=== PATIENT | female | born 1950 | race Caucasian/White ===

== ENCOUNTER 2017-12-31 01:01 | Observation (INO) | payer MEDICARE, OTHER ==
[2017-12-31] VITALS (8 sets, daily range): BP systolic 91–122; BP diastolic 54–66
[~2017-12-31] VITALS: Ht 177.8 cm; Wt 96.2 kg
[~2017-12-31 01:01] MED LIST: ASPI-1264 PO; ATEN-169 PO; ATOR20TA PO; DOCU240C26 PO; LORA0.5T PO; TOF25T PO
[2017-12-31] MEDS ORDERED: aspirin 81mg tab.chew PO ONE (01:40)
[2017-12-31 01:48] LABS: INR 0.9 INR; PARTIAL THROMBOPLASTIN TIME 27 SECONDS (22-32); PROTHROMBIN TIME 9.4 SECONDS (9.0-12.0)
[2017-12-31] MEDS: nitroGLYCERIN 0.4mg SUBLingual tab SL PRN ×2 (01:48→01:53)
[2017-12-31 02:02] LABS: ALANINE AMINOTRANSFERASE 59 U/L (12-78); ALBUMIN 3.8 G/DL (3.4-5.0); ALBUMIN/GLOBULIN RATIO 0.9 (1.1-1.5); ALKALINE PHOSPHATASE 320 IU/L (46-116); ANION GAP 10 (8-16); ASPARTATE AMINO TRANSFERASE 60 U/L (10-37); BILIRUBIN,TOTAL 0.4 MG/DL (0.1-1.0); BLOOD UREA NITROGEN 16 MG/DL (7-18); BUN/CREATININE RATIO 14.4 (6.6-38.0); CALCIUM 9.2 MG/DL (8.5-10.1); CHLORIDE 104 MMOL/L (99-107); CREATININE 1.11 MG/DL (0.40-0.90); GLUCOSE 110 MG/DL (70-104); SODIUM 141 MMOL/L (135-145); TOTAL CARBON DIOXIDE 27.2 MMOL/L (24-32); TOTAL PROTEIN 7.9 G/DL (6.4-8.2); eGFR 49 ML/MIN
[2017-12-31 02:04] LABS: POTASSIUM 4.2 MMOL/L (3.5-5.1)
[2017-12-31 02:09] LABS: BASOPHILS % (AUTO) 0.4 % (0-1); EOSINOPHILS # (AUTO) 0.3 X10'3 (0-0.9); EOSINOPHILS % (AUTO) 3.3 % (0-6); HEMATOCRIT 39.4 % (35.0-45.0); HEMOGLOBIN 13.3 g/dl (12.0-16.0); LYMPHOCYTES # (AUTO) 1.7 X10'3 (1.1-4.8); LYMPHOCYTES % (AUTO) 16.9 % (21-51); MEAN CORPUSCULAR HEMOGLOBIN 30.2 PG (27.0-31.0); MEAN CORPUSCULAR HGB CONC 33.9 % (33.0-36.5); MEAN CORPUSCULAR VOLUME 88.9 FL (78-98); MEAN PLATELET VOLUME 8.3 FL (7.4-10.4); MONOCYTES # (AUTO) 0.8 X10'3 (0-0.9); MONOCYTES % (AUTO) 7.7 % (2-12); NEUTROPHILS # (AUTO) 7.2 X10'3 (1.8-7.7); NEUTROPHILS % (AUTO) 71.7 % (42-75); PLATELET COUNT 323 X10'3 (140-440); RED BLOOD COUNT 4.43 X10'6 (4.20-5.60); RED CELL DISTRIBUTION WIDTH 15.1 % (11.5-14.5); WHITE BLOOD COUNT 10.1 X10'3 (4.5-11.0)
[2017-12-31] MEDS ORDERED: ondansetron/PF 4mg/2ml inj IV ONE (02:40)
[2017-12-31] MEDS ORDERED: LORazepam 0.5 MG tablet PO PRN (02:40)
[2017-12-31] MEDS ORDERED: morphine 4 MG/ML inj SYRINge IV ONE (02:40)
[2017-12-31] MEDS ORDERED: bisacodyl 10mg suppository rectal RC PRN (04:45)
[2017-12-31] MEDS ORDERED: mag hydrox/Alum hydrox/simeth 30ml oral suspension PO PRN (04:45)
[2017-12-31] MEDS ORDERED: acetaminophen 325mg tablet PO PRN ×3 (04:45→04:50)
[2017-12-31] MEDS ORDERED: ondansetron/PF 4mg/2ml inj IV PRN (04:45)
[2017-12-31] MEDS ORDERED: magnesium hydroxide 30ml (MOM) UD suspension PO PRN (04:45)
[2017-12-31] MEDS ORDERED: metoprolol tartrate 1mg/ml inj IV PRN (04:50)
[2017-12-31] MEDS ORDERED: CAFFEINE CITRATE 60 MG/3 ML injection vial IV PRN (04:50)
[2017-12-31] MEDS ORDERED: morphine 4 MG/ML inj SYRINge IV PRN ×2 (04:50)
[2017-12-31] MEDS ORDERED: regadenoson 0.4mg/5ml syringe IV ONE ×4 (04:50→09:35)
[2017-12-31] MEDS ORDERED: nitroGLYCERIN 0.4mg SUBLingual tab SL PRN ×2 (04:50)
[2017-12-31] MEDS ORDERED: aspirin 325mg tablet PO ONE (04:50)
[2017-12-31 05:26] LABS: CHOL/HDL RATIO 2.6 (0.00-4.99); CHOLESTEROL 159 MG/DL (0-200); HDL CHOLESTEROL 61 MG/DL (35-60); LDL CHOLESTEROL 85 MG/DL (50-100); TRIGLYCERIDES 78 MG/DL (20-135)
[2017-12-31] MEDS ORDERED: atenolol 50mg tablet PO SCH (08:00)
[2017-12-31] MEDS ORDERED: heparin, porcine 5000 units/ml vial SQ SCH (08:00)
[2017-12-31] MEDS ORDERED: CAFFEINE CITRATE 60 MG/3 ML injection vial IV ONE (09:09)
[2017-12-31 09:51] LABS: LIPASE 189 U/L (73-393)
[2017-12-31] MEDS ORDERED: ESOM20CA PO (14:49)
[2017-12-31] MEDS ORDERED: atorvastatin 20mg tablet PO SCH (21:00)
[2017-12-31] MEDS ORDERED: imipramine 25mg tablet PO SCH (21:00)
== END 2017-12-31 15:38 | disposition home or self-care (01) ==
LOC: ER 01:02 → ED HOLD 04:44
PROVIDERS: ADMIT Emergency Medicine; ATTEND Emergency Medicine
DX: R07.89 Other chest pain (principal); E78.5 Hyperlipidemia, unspecified; I10 Essential (primary) hypertension; I05.0 Rheumatic mitral stenosis; I49.9 Cardiac arrhythmia, unspecified; I44.7 Left bundle-branch block, unspecified; Z87.891 Personal history of nicotine dependence; Z90.710 Acquired absence of both cervix and uterus
CPT/HCPCS: 36415; 71045; 76700; 78452; 80053; 80061; 83690; 84484; 85025; 85610; 85730; 93005; 93306; 96372; 96374; 96375; 96376; 99285; A9500; G0378; J1644; J2270; J2405; 93017

== ENCOUNTER 2018-01-18 07:03 | Day surgery (SDC) | payer MEDICARE, OTHER ==
[2018-01-18] VITALS (17 sets, daily range): BP systolic 66–143; BP diastolic 33–88
[~2018-01-18] VITALS: Ht 177.8 cm; Wt 95.5 kg
[~2018-01-18 07:03] MED LIST changes: -ASPI-1264 PO; -DOCU240C26 PO; +ESOM20CA PO
[2018-01-18] MEDS ORDERED: PSYL0.5210 PO (07:18)
[2018-01-18] MEDS ORDERED: diphenhydrAMINE 50 mg/ml inj ONE (07:23)
[2018-01-18] MEDS ORDERED: fentaNYL/PF 50MCG/1 ML 2ML syringe ONE (07:23)
[2018-01-18] MEDS ORDERED: LIDOcaine Viscous 15ml cup ONE (07:23)
[2018-01-18] MEDS ORDERED: MIDAZolam 5mg/5ml vial ONE (07:23)
[2018-01-18] MEDS ORDERED: glucagon, human recombinant 1mg kit ONE (07:24)
[2018-01-18] MEDS ORDERED: iohexol 300 MG/1 ML 50ml polymer ONE (07:24)
[2018-01-18] MEDS ORDERED: levoFLOXACIN-Levaquin 500mg/D5 100 ML IV ONE (08:41)
[2018-01-18] MEDS ORDERED: ondansetron/PF 4mg/2ml inj ONE (10:54)
[2018-01-18] MEDS ORDERED: ondansetron/PF 4mg/2ml inj IV ONE (10:55)
== END 2018-01-18 12:35 | disposition home or self-care (01) ==
LOC: GI LAB 07:03
PROVIDERS: ATTEND Internal Medicine Gastroenterology
DX: K80.50 Calculus of bile duct without cholangitis or cholecystitis without obstruction (principal); D13.5 Benign neoplasm of extrahepatic bile ducts; N28.1 Cyst of kidney, acquired; I70.0 Atherosclerosis of aorta; M16.11 Unilateral primary osteoarthritis, right hip; M47.816 Spondylosis without myelopathy or radiculopathy, lumbar region; J98.4 Other disorders of lung; I10 Essential (primary) hypertension; I44.7 Left bundle-branch block, unspecified; I05.0 Rheumatic mitral stenosis; Z90.710 Acquired absence of both cervix and uterus; Z87.891 Personal history of nicotine dependence; Z90.89 Acquired absence of other organs; Z98.890 Other specified postprocedural states; Z79.899 Other long term (current) drug therapy
CPT/HCPCS: 43262; 43264; 74176; 99153; G0500; J1200; J1610; J1956; J2250; J2405; J3010; J7030; Q9967; 88108; 88305; A4620

== ENCOUNTER 2018-07-26 07:36 | Day surgery (SDC) | payer MEDICARE, OTHER ==
[2018-07-26] VITALS (7 sets, daily range): BP systolic 101–121; BP diastolic 54–76
[~2018-07-26] VITALS: Ht 177.8 cm; Wt 94.8 kg
[~2018-07-26 07:36] MED LIST changes: -ESOM20CA PO; +PSYL0.5210 PO
[2018-07-26] MEDS ORDERED: normal saline 1000ml 1,000 ML IV PRN (08:15)
[2018-07-26] MEDS ORDERED: NAPR220T67 PO (08:44)
[2018-07-26 09:06] LABS: BASOPHILS % (AUTO) 0.7 % (0-1); EOSINOPHILS # (AUTO) 0.4 X10'3 (0-0.9); EOSINOPHILS % (AUTO) 6.3 % (0-6); HEMATOCRIT 40.3 % (35.0-45.0); HEMOGLOBIN 13.5 g/dl (12.0-16.0); LYMPHOCYTES % (AUTO) 16.8 % (21-51); MEAN CORPUSCULAR HEMOGLOBIN 29.7 PG (27.0-31.0); MEAN CORPUSCULAR HGB CONC 33.5 % (33.0-36.5); MEAN CORPUSCULAR VOLUME 88.7 FL (78-98); MEAN PLATELET VOLUME 8.5 FL (7.4-10.4); MONOCYTES # (AUTO) 0.5 X10'3 (0-0.9); MONOCYTES % (AUTO) 8.2 % (2-12); NEUTROPHILS # (AUTO) 4.1 X10'3 (1.8-7.7); PLATELET COUNT 281 X10'3 (140-440); RED BLOOD COUNT 4.54 X10'6 (4.20-5.60); RED CELL DISTRIBUTION WIDTH 14.5 % (11.5-14.5)
[2018-07-26 09:08] LABS: INR 0.9 INR; PROTHROMBIN TIME 9.4 SECONDS (9.0-12.0)
[2018-07-26 09:13] LABS: ALBUMIN 3.5 G/DL (3.4-5.0); ANION GAP 11 (8-16); BLOOD UREA NITROGEN 11 MG/DL (7-18); BUN/CREATININE RATIO 9.5 (6.6-38.0); CALCIUM 9.7 MG/DL (8.5-10.1); CHLORIDE 104 MMOL/L (99-107); CREATININE 1.16 MG/DL (0.40-0.90); GLUCOSE 104 MG/DL (70-104); SODIUM 141 MMOL/L (135-145); TOTAL CARBON DIOXIDE 26.3 MMOL/L (24-32); eGFR 47 ML/MIN
[2018-07-26] MEDS ORDERED: HYDROcodone/acetaminophen 5mg/325mg tablet PO PRN (10:25)
== END 2018-07-26 11:50 | disposition home or self-care (01) ==
LOC: SSTAY O 07:36
PROVIDERS: ATTEND Radiology Diagnostic Radiology
DX: R74.8 Abnormal levels of other serum enzymes (principal); Z79.899 Other long term (current) drug therapy; Z90.710 Acquired absence of both cervix and uterus; Z96.642 Presence of left artificial hip joint; Z98.890 Other specified postprocedural states
CPT/HCPCS: 36415; 47000; 76942; 80048; 85025; 85610; J7030

== ENCOUNTER 2018-11-06 05:27 | Inpatient (IN) | payer MEDICARE, OTHER ==
[2018-10-29 11:03] LABS: BASOPHILS % (AUTO) 0.5 % (0-1); EOSINOPHILS # (AUTO) 0.1 X10'3 (0-0.9); LYMPHOCYTES # (AUTO) 1.5 X10'3 (1.1-4.8); LYMPHOCYTES % (AUTO) 25.3 % (21-51); MEAN CORPUSCULAR HEMOGLOBIN 29.4 PG (27.0-31.0); MEAN CORPUSCULAR HGB CONC 33.3 g/dL (33.0-36.5); MEAN CORPUSCULAR VOLUME 88.4 FL (78-98); MEAN PLATELET VOLUME 8.4 FL (7.4-10.4); MONOCYTES # (AUTO) 0.6 X10'3 (0-0.9); MONOCYTES % (AUTO) 10.2 % (2-12); NEUTROPHILS # (AUTO) 3.6 X10'3 (1.8-7.7); PRE OP HEMATOCRIT 40.7 % (35.0-45.0); PRE OP HEMOGLOBIN 13.5 g/dL (12.0-16.0); PRE OP PLATELET COUNT 261 X10'3 (140-440)
[2018-10-29 11:05] LABS: CLARITY,URINE CLEAR (Clear); COLOR,URINE YELLOW (Yellow); GLUCOSE, URINE NEGATIVE (Neg); KETONES,URINE NEGATIVE (Neg); LEUKOCYTE ESTERASE ,URINE NEGATIVE (Neg); NITRITES, URINE NEGATIVE (Neg); OCCULT BLOOD,URINE NEGATIVE (Neg); PROTEIN,URINE NEGATIVE (Neg); UROBILINOGEN,URINE 0.2 E.U/dL (0.2-1.0)
[2018-10-29 11:13] LABS: UA COLLECTION TYPE CLN CATCH MIDSTREAM
[2018-10-29 11:16] LABS: PRE OP INR 0.9 INR; PRE OP PROTIME 9.6 SECONDS (9.0-12.0)
[2018-10-29 11:26] LABS: ALBUMIN 3.6 G/DL (3.4-5.0); ALBUMIN/GLOBULIN RATIO 1.1 (1.1-1.5); ALKALINE PHOSPHATASE 99 IU/L (46-116); BLOOD UREA NITROGEN 10 MG/DL (7-18); BUN/CREATININE RATIO 11.6 (6.6-38.0); CALCIUM 9.6 MG/DL (8.5-10.1); CHLORIDE 105 MMOL/L (99-107); CREATININE 0.86 MG/DL (0.40-0.90); PRE OP ALT 29 U/L (30-65); PRE OP ANION GAP 6 (8-16); PRE OP AST 34 U/L (10-37); PRE OP BILIRUB, TOTAL 0.5 MG/DL (0.0-1.0); PRE OP GLUCOSE 93 MG/DL (70-104); PRE OP POTASSIUM 4.3 MMOL/L (3.4-5.1); PRE OP SODIUM 141 MMOL/L (135-145); TOTAL CARBON DIOXIDE 30.4 MMOL/L (24-32); TOTAL PROTEIN 6.9 G/DL (6.4-8.2); eGFR 66 ML/MIN
[2018-11-06] VITALS (19 sets, daily range): BP systolic 88–127; BP diastolic 42–73
[~2018-11-06] VITALS: Ht 177.8 cm; Wt 86.2 kg
[~2018-11-06 05:27] MED LIST changes: -ATOR20TA PO; +BISM262T15; +CHOL500050 PO; +LACT1CAP65 PO; +LEVO25TA7 PO; +NAPR220T67 PO; -PSYL0.5210 PO; -TOF25T PO; +URSO500T9 PO; +ringers solution, lacted 1,000 ML IV SCH
[2018-11-06] MEDS ORDERED: famotidine 20mg tablet PO ONE (05:30)
[2018-11-06] MEDS ORDERED: acetaminophen 325mg tablet PO ONE (05:30)
[2018-11-06] MEDS ORDERED: metoclopramide 5 mg/ml inj IV ONE (05:30)
[2018-11-06] MEDS ORDERED: vancomycin inj 1,500 MG in normal saline 300ml IV soln IV ONE (05:30)
[2018-11-06] MEDS ORDERED: DOCUMENT DATE & TIME OF BETA-BLOCKER PO ONE (05:30)
[2018-11-06] MEDS ORDERED: cefazolin/dext.iso 2gm/100 ML IV ONE (05:30)
[2018-11-06] MEDS ORDERED: tranexamic acid inj. 1,000 MG in normal saline 100 ML IV ONE (05:30)
[2018-11-06] MEDS ORDERED: gabapentin 300mg capsule PO ONE (05:30)
[2018-11-06] MEDS ORDERED: celeCOXIB 100mg capsule PO ONE (05:30)
[2018-11-06] MEDS ORDERED: oxyCODONE SR 10mg (sust. release) tab -2 tabs (20mg) PO ONE (05:30)
[2018-11-06] MEDS ORDERED: LIDOcaine 1% (10mg/ml) 2ml vial ONE (05:45)
[2018-11-06] MEDS ORDERED: vancomycin 1,000mg inj ONE (06:36)
[2018-11-06] MEDS ORDERED: ROPIVAcaine inj 250 MG, ketorolac tromethamine inj. 30 MG, CloNIDine/PF inj 80 MCG, epi... IU ONE ×5 (06:50)
[2018-11-06] MEDS ORDERED: HYDROmorphone 1 mg/ml syringe IV PRN (06:55)
[2018-11-06] MEDS ORDERED: bisacodyl 10mg suppository rectal RC PRN (06:55)
[2018-11-06] MEDS ORDERED: diphenhydrAMINE 25mg capsule PO PRN ×2 (06:55)
[2018-11-06] MEDS ORDERED: ondansetron/PF 4mg/2ml inj IV PRN ×2 (06:55→08:10)
[2018-11-06] MEDS ORDERED: acetaminophen 325mg tablet PO PRN (06:55)
[2018-11-06] MEDS ORDERED: magnesium hydroxide 30ml (MOM) UD suspension PO PRN (06:55)
[2018-11-06] MEDS ORDERED: HYDROmorphone inj. 0.5 MG/0.5 ML DISP.SYRIN IV PRN (06:55)
[2018-11-06] MEDS ORDERED: tetracaine 1% (10mg/ml) pres. free inj. ONE (07:06)
[2018-11-06] MEDS ORDERED: MIDAZolam 1mg/ml 10ml vial ONE (07:09)
[2018-11-06] MEDS ORDERED: fentaNYL/PF 50MCG/1 ML 2ML syringe ONE (07:10)
[2018-11-06] MEDS ORDERED: ROPIVAcaine inj 250 MG, ketorolac tromethamine inj. 30 MG, epiNEPHrine inj 0.5 MG in no... IU ONE (07:29)
[2018-11-06] MEDS ORDERED: propofol inj 20 ML IV ONE (07:31)
[2018-11-06] MEDS ORDERED: ePHEDrine 50MG/ML INJ. ONE (07:55)
[2018-11-06] MEDS ORDERED: URSODIOL PO SCH (08:00)
[2018-11-06] MEDS ORDERED: non-formulary drug (Lactobacillus Acidophilus (Probiotic) 1 CAP) PO SCH (08:00)
[2018-11-06] MEDS ORDERED: non-formulary drug (Cholecalciferol (Vitamin D3) (Vitamin D) 1 CAP) PO SCH (08:00)
[2018-11-06] MEDS ORDERED: ringers solution, lacted 1,000 ML IV SCH (08:08)
[2018-11-06] MEDS ORDERED: morphine 4 MG/ML inj SYRINge IV PRN ×2 (08:10)
[2018-11-06] MEDS ORDERED: proCHLORperazine 10 MG/2 ml inj IV PRN (08:10)
[2018-11-06] MEDS ORDERED: meperidine/PF 25mg/ml syringe IV PRN ×3 (08:10)
--- NOTE | 2018-11-06 08:45 | NUR ---
UReceived from OR via , accompanied by Anesthesiologist DR WARD and report given by Anesthesiolgist. PATIENT A&OX4, DENIES PAIN, V/S WNL, NEUROVASCULAR CHECKS INTACT, 18G PIV RUE , DRESSING TO RIGHT HIP CDI W/ COLD POWDER PACK ON AND IMMOBILIZER BRACE TO RLE, SCD ON.
[2018-11-06] MEDS ORDERED: diphenhydrAMINE 50 mg/ml inj ONE (09:05)
--- NOTE | 2018-11-06 09:07 | NUR ---
PATIENT VERY ITCHY BENYDRYL GIVEN
--- NOTE | 2018-11-06 09:45 | NUR ---
PATIENT A&OX4, DENIES PAIN, V/S WNL, NEUROVASCULAR CHECKS INTACT, 18G PIV RUE , DRESSING TO RIGHT HIP CDI W/ COLD POWDER PACK ON AND IMMOBILIZER BRACE TO RLE, SCD ON. SENSATIONS AT T11. . PATIENT TAKEN TO 4015B WITH ALL BELONGINGS AND HOOKED UP TO MONITORS IN ROOM AND REPORT GIVEN TO HOME HEALTH CAREGIVER WHO HAS TAKEN OVER PATIENT CARE.
[2018-11-06] MEDS ORDERED: naproxen sodium 220mg tablet PO PRN (10:00)
[2018-11-06] MEDS: gabapentin 300mg capsule PO SCH ×3 (10:20→20:34)
[2018-11-06] MEDS: levoTHYROXINE 25mcg tablet PO SCH (10:20)
[2018-11-06] MEDS: LORazepam 0.5 MG tablet PO SCH ×2 (10:20→20:34)
[2018-11-06] MEDS: atenolol 50mg tablet PO SCH ×3 (10:21→20:34)
[2018-11-06] MEDS: multivitamins, therapeutics tablet PO SCH (10:21)
[2018-11-06] MEDS: ascorbic acid 500mg tablet PO SCH ×2 (10:21→20:33)
[2018-11-06] MEDS: aspirin 325mg tablet PO SCH (10:22)
[2018-11-06] MEDS: potassium cl 20mEq in 1/2 NS 1,000 ML IV SCH ×3 (12:35→20:34)
[2018-11-06] MEDS: HYDROcodone/acetaminophen 10/325mg tab PO PRN ×3 (12:36→23:04)
[2018-11-06] MEDS ORDERED: tranexamic acid inj. 1,000 MG in normal saline 100ml IV soln 100 ML IV ONE (13:16)
[2018-11-06] MEDS: cefazolin/dext.iso 2gm/100ml 100 ML IV SCH ×2 (16:59→23:04)
--- NOTE | 2018-11-06 18:15 | NUR ---
RECEIVED REPORT FROM JAYSON BAILEY AND ASSUMED PATIENT CARE
[2018-11-06] MEDS: lactobacillus rhamnosus 10,000 MMU CELLS/CAPSULE PO SCH (20:33)
[2018-11-06] MEDS: sennosides 8.6mg tablet PO SCH ×2 (20:33→21:00)
[2018-11-07 02:00] VITALS: BP 96/48
[2018-11-07] MEDS: HYDROcodone/acetaminophen 10/325mg tab PO PRN ×2 (05:20→10:11)
[2018-11-07 06:00] VITALS: BP 94/54
--- NOTE | 2018-11-07 06:01 | NUR ---
REPORT GIVEN TO ROGER BAILEY
--- NOTE | 2018-11-07 06:43 | NUR ---
Patient in room ORTHO 4015. I have received report from Itzel BAILEY and had the opportunity to ask questions and assume patient care.
[2018-11-07] MEDS: potassium cl 20mEq in 1/2 NS 1,000 ML IV SCH ×3 (06:55→22:55)
[2018-11-07] MEDS: cefazolin/dext.iso 2gm/100ml 100 ML IV SCH ×2 (07:31→16:09)
[2018-11-07 07:32] LABS: BASOPHILS % (AUTO) 0.3 % (0-1); EOSINOPHILS # (AUTO) 0.1 X10'3 (0-0.9); EOSINOPHILS % (AUTO) 1.2 % (0-6); HEMATOCRIT 34.4 % (35.0-45.0); HEMOGLOBIN 11.4 g/dl (12.0-16.0); LYMPHOCYTES # (AUTO) 1.7 X10'3 (1.1-4.8); LYMPHOCYTES % (AUTO) 23.5 % (21-51); MEAN CORPUSCULAR HEMOGLOBIN 29.4 PG (27.0-31.0); MEAN CORPUSCULAR VOLUME 89.1 FL (78-98); MEAN PLATELET VOLUME 8.6 FL (7.4-10.4); MONOCYTES # (AUTO) 0.8 X10'3 (0-0.9); MONOCYTES % (AUTO) 10.7 % (2-12); NEUTROPHILS # (AUTO) 4.6 X10'3 (1.8-7.7); NEUTROPHILS % (AUTO) 64.3 % (42-75); PLATELET COUNT 225 X10'3 (140-440); RED BLOOD COUNT 3.86 X10'6 (4.20-5.60); WHITE BLOOD COUNT 7.2 X10'3 (4.5-11.0)
[2018-11-07] MEDS: gabapentin 300mg capsule PO SCH ×3 (07:32→19:56)
[2018-11-07] MEDS: aspirin 325mg tablet PO SCH (07:32)
[2018-11-07] MEDS: lactobacillus rhamnosus 10,000 MMU CELLS/CAPSULE PO SCH ×2 (07:32→19:56)
[2018-11-07] MEDS: multivitamins, therapeutics tablet PO SCH (07:33)
[2018-11-07] MEDS: LORazepam 0.5 MG tablet PO SCH ×2 (07:33→19:56)
[2018-11-07] MEDS: levoTHYROXINE 25mcg tablet PO SCH (07:33)
[2018-11-07] MEDS: ascorbic acid 500mg tablet PO SCH ×2 (07:34→19:55)
[2018-11-07] MEDS: vitamin D (cholecalciferol) 1,000 unit tablet PO SCH (07:34)
[2018-11-07] MEDS: atenolol 50mg tablet PO SCH ×2 (07:39→20:00)
[2018-11-07 07:47] LABS: ANION GAP 9 (8-16); CHLORIDE 100 MMOL/L (99-107); POTASSIUM 3.8 MMOL/L (3.5-5.1); SODIUM 134 MMOL/L (135-145); TOTAL CARBON DIOXIDE 25.4 MMOL/L (24-32)
[2018-11-07 10:05] VITALS: BP 112/52
--- NOTE | 2018-11-07 11:23 | NUR ---
Student documentation: I have reviewed all interventions, assessments performed and documented by Itzel Barry. Student Medication Administration: For this medication-pass time frame, all medication were reviewed, dispensed, administered and documented per hospital policy [facility]
[2018-11-07 14:00] VITALS: BP 109/53
--- NOTE | 2018-11-07 15:08 | NUR ---
Joint replacement consult: Pt seen by RD for written/verbal high protein ed. RD reviewed high protein needs for wound healing, immune strength, high protein foods, and protein supplementation options. RD contact information provided in case of further questions. Pt declines additional proteins. Pt has new DX PBC autoimmune disease and had questions regarding diet guidelines. YING provided guidelines from [email or web address] for pt. Addendum: 11/07/18 at [address] Amended: Links added.
[2018-11-07 18:00] VITALS: BP 93/63
--- NOTE | 2018-11-07 18:21 | NUR ---
Problems reprioritized. Patient report given, questions answered & plan of care reviewed with Natalya BAILEY.
[2018-11-07] MEDS: sennosides 8.6mg tablet PO SCH (20:04)
[2018-11-07 22:00] VITALS: BP 145/64
[2018-11-08] MEDS: cefazolin/dext.iso 2gm/100ml 100 ML IV SCH ×2 (00:05→07:36)
[2018-11-08] MEDS: HYDROcodone/acetaminophen 10/325mg tab PO PRN (00:08)
--- NOTE | 2018-11-08 06:00 | NUR ---
Problems reprioritized. Patient report given, questions answered & plan of care reviewed with LYNN Ordaz.
[2018-11-08 06:05] VITALS: BP 124/67
--- NOTE | 2018-11-08 06:59 | NUR ---
Patient in room ORTHO 4015. I have received report from Natalya BAILEY and had the opportunity to ask questions and assume patient care.
[2018-11-08 07:06] LABS: BASOPHILS % (AUTO) 0.3 % (0-1); EOSINOPHILS # (AUTO) 0.1 X10'3 (0-0.9); EOSINOPHILS % (AUTO) 2.8 % (0-6); HEMATOCRIT 31.5 % (35.0-45.0); HEMOGLOBIN 10.9 g/dl (12.0-16.0); LYMPHOCYTES # (AUTO) 1.2 X10'3 (1.1-4.8); LYMPHOCYTES % (AUTO) 22.4 % (21-51); MEAN CORPUSCULAR HEMOGLOBIN 30.3 PG (27.0-31.0); MEAN CORPUSCULAR HGB CONC 34.5 g/dL (33.0-36.5); MEAN PLATELET VOLUME 8.8 FL (7.4-10.4); MONOCYTES # (AUTO) 0.7 X10'3 (0-0.9); MONOCYTES % (AUTO) 12.9 % (2-12); NEUTROPHILS # (AUTO) 3.3 X10'3 (1.8-7.7); NEUTROPHILS % (AUTO) 61.6 % (42-75); PLATELET COUNT 194 X10'3 (140-440); RED BLOOD COUNT 3.58 X10'6 (4.20-5.60); RED CELL DISTRIBUTION WIDTH 14.7 % (11.5-14.5); WHITE BLOOD COUNT 5.4 X10'3 (4.5-11.0)
[2018-11-08] MEDS: aspirin 325mg tablet PO SCH (07:33)
[2018-11-08] MEDS: LORazepam 0.5 MG tablet PO SCH (07:33)
[2018-11-08] MEDS: multivitamins, therapeutics tablet PO SCH (07:34)
[2018-11-08] MEDS: vitamin D (cholecalciferol) 1,000 unit tablet PO SCH (07:34)
[2018-11-08] MEDS: levoTHYROXINE 25mcg tablet PO SCH (07:34)
[2018-11-08] MEDS: lactobacillus rhamnosus 10,000 MMU CELLS/CAPSULE PO SCH (07:35)
[2018-11-08] MEDS: ascorbic acid 500mg tablet PO SCH (07:35)
[2018-11-08] MEDS: gabapentin 300mg capsule PO SCH (07:35)
[2018-11-08] MEDS: atenolol 50mg tablet PO SCH (07:37)
[2018-11-08 09:20] VITALS: BP 107/54
[2018-11-08] MEDS ORDERED: ASPI-1 PO (10:46)
--- NOTE | 2018-11-08 12:15 | NUR ---
Patient discharged with all belongings to home, left in private vehicle, IV taken out, home meds that were stored in pharmacy were given to patient, patient stable and educated on [place] dressing care and management of surgical wound
== END 2018-11-08 12:15 | disposition home or self-care (01) | DRG 470 ==
LOC: PAS IN 05:27 → EDSTATUS 07:30 → ORTHO 4S 09:45
PROVIDERS: ADMIT Orthopaedic Surgery; ATTEND Orthopaedic Surgery
PROC: 0SR901Z Replacement of Right Hip Joint with Metal Synthetic Substitute, Open Approach (ICD-10-PCS; principal; 2018-11-06 07:03)
DX: M16.11 Unilateral primary osteoarthritis, right hip (principal); D62 Acute posthemorrhagic anemia; E03.9 Hypothyroidism, unspecified; I25.10 Atherosclerotic heart disease of native coronary artery without angina pectoris; M70.61 Trochanteric bursitis, right hip; F41.9 Anxiety disorder, unspecified; Z96.642 Presence of left artificial hip joint; Z90.710 Acquired absence of both cervix and uterus; Z79.899 Other long term (current) drug therapy; Z79.82 Long term (current) use of aspirin; Z87.891 Personal history of nicotine dependence; Z82.49 Family history of ischemic heart disease and other diseases of the circulatory system
CPT/HCPCS: 36415; 71046; 72170; 80051; 80053; 81003; 82948; 84443; 85025; 85610; 85730; 86885; 86900; 86901; 87070; 97110; 97116; 97161; 97530; A4615; A7000; C1758; C1776; G0378; J0171; J0690; J0735; J1200; J1885; J2250; J2405; J2704; J2765; J2795; J3010; J3370; J3490; J7030; J7120

== ENCOUNTER 2020-06-22 11:58 | Emergency (ER) | payer MEDICARE, BC ==
[~2020-06-22] VITALS: Ht 177.8 cm; Wt 90.0 kg
[~2020-06-22 11:58] MED LIST changes: +ASPI-1 PO; +DIAZ5TAB PO; +ONDA4TAB12 PO; +URSO500T10 PO; -URSO500T9 PO; -ringers solution, lacted 1,000 ML IV SCH
--- NOTE | 2020-06-22 13:04 | NUR ---
PATIENT C/O PAIN IN RIGHT LOWER LEG WHEN WALKING, LASTING APPROX 3 WEEKS. PATIENT REPORTS DISCOLORATION OF RIGHT POSTERIOR CALF AREA.
--- NOTE | 2020-06-22 14:39 | NUR ---
PAGED KORY SHEN @[phone]
[2020-06-22 16:27] VITALS: BP 137/70
== END 2020-06-22 16:29 | disposition home or self-care (01) ==
LOC: ER 11:59
DX: S86.912A Strain of unspecified muscle(s) and tendon(s) at lower leg level, left leg, initial encounter (principal); Z90.710 Acquired absence of both cervix and uterus; Z98.891 History of uterine scar from previous surgery; Z98.890 Other specified postprocedural states; Z79.82 Long term (current) use of aspirin; Z79.899 Other long term (current) drug therapy; X58.XXXA Exposure to other specified factors, initial encounter; I10 Essential (primary) hypertension; Y93.89 Activity, other specified; Y92.89 Other specified places as the place of occurrence of the external cause; Y99.8 Other external cause status
CPT/HCPCS: 93971; 99284

== ENCOUNTER 2020-08-31 09:55 | Emergency (ER) | payer MEDICARE, BC ==
[~2020-08-31] VITALS: Ht 177.8 cm; Wt 75.9 kg
[2020-08-31 10:49] LABS: BASOPHILS % (AUTO) 0.4 % (0-1); EOSINOPHILS % (AUTO) 0.3 % (0-6); HEMATOCRIT 45.9 % (35.0-45.0); HEMOGLOBIN 15.5 g/dl (12.0-16.0); LYMPHOCYTES # (AUTO) 0.9 X10'3 (1.1-4.8); LYMPHOCYTES % (AUTO) 16.9 % (21-51); MEAN CORPUSCULAR HEMOGLOBIN 30.4 PG (27.0-31.0); MEAN CORPUSCULAR HGB CONC 33.8 g/dL (33.0-36.5); MEAN CORPUSCULAR VOLUME 89.9 FL (78-98); MEAN PLATELET VOLUME 7.4 FL (7.4-10.4); MONOCYTES # (AUTO) 0.4 X10'3 (0-0.9); MONOCYTES % (AUTO) 8.2 % (2-12); NEUTROPHILS # (AUTO) 3.9 X10'3 (1.8-7.7); NEUTROPHILS % (AUTO) 74.2 % (42-75); PLATELET COUNT 303 X10'3 (140-440); RED CELL DISTRIBUTION WIDTH 13.4 % (11.5-14.5); WHITE BLOOD COUNT 5.3 X10'3 (4.5-11.0)
[2020-08-31 11:06] LABS: ALANINE AMINOTRANSFERASE 22 U/L (12-78); ALBUMIN 4.1 G/DL (3.4-5.0); ALBUMIN/GLOBULIN RATIO 1.2 (1.1-1.5); ALKALINE PHOSPHATASE 87 IU/L (46-116); ANION GAP 11 (8-16); ASPARTATE AMINO TRANSFERASE 27 U/L (10-37); BILIRUBIN,TOTAL 0.9 MG/DL (0.1-1.0); BLOOD UREA NITROGEN 7 MG/DL (7-18); BUN/CREATININE RATIO 7.1 (6.6-38.0); CALCIUM 9.8 MG/DL (8.5-10.1); CHLORIDE 93 MMOL/L (99-107); CREATININE 0.98 MG/DL (0.40-0.90); GLUCOSE 103 MG/DL (70-104); LIPASE 141 U/L (73-393); MAGNESIUM 2.2 MG/DL (1.5-2.4); POTASSIUM 4.3 MMOL/L (3.5-5.1); SODIUM 130 MMOL/L (135-145); TOTAL CARBON DIOXIDE 25.6 MMOL/L (24-32); TOTAL PROTEIN 7.6 G/DL (6.4-8.2); eGFR 56 ML/MIN
[2020-08-31 11:14] LABS: PARTIAL THROMBOPLASTIN TIME 28 SECONDS (22-32)
[2020-08-31 11:33] LABS: CLARITY,URINE CLEAR (Clear); COLOR,URINE YELLOW (Yellow); GLUCOSE, URINE NEGATIVE (Neg); KETONES,URINE TRACE mg/dl (Neg); LEUKOCYTE ESTERASE ,URINE NEGATIVE (Neg); NITRITES, URINE NEGATIVE (Neg); OCCULT BLOOD,URINE NEGATIVE (Neg); PH,URINE 7.5 (4.8-8.0); PROTEIN,URINE NEGATIVE (Neg); UROBILINOGEN,URINE 0.2 E.U/dL (0.2-1.0)
[2020-08-31 11:34] LABS: UA COLLECTION TYPE CLN CATCH MIDSTREAM
[2020-08-31] MEDS ORDERED: normal saline 1000ML IV soln IVB ONE (11:40)
[2020-08-31] MEDS ORDERED: metoclopramide 5 mg/ml inj IV ONE (11:40)
[2020-08-31] MEDS ORDERED: mag hydrox/Alum hydrox/simeth 30ml oral suspension PO ONE (11:50)
[2020-08-31] MEDS ORDERED: diazepam inj 5 MG/ML inj. IV ONE (13:20)
--- NOTE | 2020-08-31 14:00 | NUR ---
PA AWARE PATIENT TAKES 1 MG ATIVAN TWICE DAILY AND TOOK 1 MG THIS AM
[2020-08-31] MEDS ORDERED: haloperidol lactate 5mg/ml inj IM ONE (15:10)
[2020-08-31 16:22] VITALS: BP 135/71
--- NOTE | 2020-08-31 16:23 | NUR ---
SPOKE WITH PA REGARDING PATIENT'S PERSISTENT NAUSEA. PATIENT STATES THAT HER NAUSEA GOT SLIGHTLY BETTER AFTER THE REGLAN AND THEN "WENT BACK TO WHERE I STARTED" WITH NAUSEA. DISCUSSED FOLLOWING UP WITH BOTH COUNSELER WHO SHE SEES DAVID AND HER PMD AND BECKY AT DR LOPEZ FOR MEDICATION MANAGEMENT. PATIENT STATES THAT FOR 30 YEARS SHE HAS TAKEN 0.5 MG PO BID OF ATIVAN AND ATIVAN WAS INCREASED ABOUT ONE YEAR AGO. [employer] VERBALIZED THAT SHE WILL FOLLOW UP WITH PMMoody BAIRD AND AT DR LOPEZ OFFICE.
== END 2020-08-31 16:50 | disposition home or self-care (01) ==
LOC: ER 09:55
DX: R11.0 Nausea (principal); E87.1 Hypo-osmolality and hyponatremia; R10.10 Upper abdominal pain, unspecified; I10 Essential (primary) hypertension; Z90.710 Acquired absence of both cervix and uterus; Z98.890 Other specified postprocedural states; Z79.82 Long term (current) use of aspirin; Z79.899 Other long term (current) drug therapy
CPT/HCPCS: 36415; 71045; 76700; 80053; 81003; 82140; 83690; 83735; 84484; 85025; 85610; 85730; 93005; 96361; 96372; 96374; 96375; 99285; J1630; J2765; J3360; J7030

== ENCOUNTER 2021-10-11 17:41 | Emergency (ER) | payer MEDICARE, OTHER ==
[~2021-10-11] VITALS: Ht 177.8 cm; Wt 90.9 kg
--- NOTE | 2021-10-11 18:38 | NUR ---
pt roomed in bed 11
[2021-10-11 19:03] LABS: BASOPHILS % (AUTO) 0.5 % (0-1); EOSINOPHILS % (AUTO) 0.5 % (0-6); HEMATOCRIT 42.8 % (35.0-45.0); HEMOGLOBIN 14.2 g/dl (12.0-16.0); LYMPHOCYTES # (AUTO) 1.1 X10'3 (1.1-4.8); LYMPHOCYTES % (AUTO) 22.6 % (21-51); MEAN CORPUSCULAR HEMOGLOBIN 29.2 PG (27.0-31.0); MEAN CORPUSCULAR HGB CONC 33.2 g/dL (33.0-36.5); MEAN PLATELET VOLUME 6.8 FL (7.4-10.4); MONOCYTES # (AUTO) 0.6 X10'3 (0-0.9); MONOCYTES % (AUTO) 11.6 % (2-12); NEUTROPHILS # (AUTO) 3.1 X10'3 (1.8-7.7); NEUTROPHILS % (AUTO) 64.8 % (42-75); PLATELET COUNT 327 X10'3 (140-440); RED BLOOD COUNT 4.87 X10'6 (4.20-5.60); RED CELL DISTRIBUTION WIDTH 14.5 % (11.5-14.5); WHITE BLOOD COUNT 4.8 X10'3 (4.5-11.0)
[2021-10-11 19:18] LABS: ALANINE AMINOTRANSFERASE 20 U/L (12-78); ALBUMIN 3.7 G/DL (3.4-5.0); ALBUMIN/GLOBULIN RATIO 1.2 (1.1-1.5); ALKALINE PHOSPHATASE 79 IU/L (46-116); ANION GAP 8 (8-16); ASPARTATE AMINO TRANSFERASE 22 U/L (10-37); BILIRUBIN,TOTAL 0.8 MG/DL (0.1-1.0); BLOOD UREA NITROGEN 4 MG/DL (7-18); BUN/CREATININE RATIO 4.5 (6.6-38.0); CALCIUM 8.7 MG/DL (8.5-10.1); CHLORIDE 101 MMOL/L (99-107); CREATININE 0.89 MG/DL (0.40-0.90); GLUCOSE 105 MG/DL (70-104); POTASSIUM 3.9 MMOL/L (3.5-5.1); SODIUM 135 MMOL/L (135-145); TOTAL PROTEIN 6.8 G/DL (6.4-8.2); eGFR 63 ML/MIN
[2021-10-11 19:25] LABS: LIPASE 90 U/L (73-393)
[2021-10-11 19:59] LABS: CLARITY,URINE CLEAR (Clear); COLOR,URINE YELLOW (Yellow); GLUCOSE, URINE NEGATIVE (Neg); KETONES,URINE NEGATIVE (Neg); LEUKOCYTE ESTERASE ,URINE NEGATIVE (Neg); NITRITES, URINE NEGATIVE (Neg); OCCULT BLOOD,URINE TRACE-INTACT (Neg); PROTEIN,URINE NEGATIVE (Neg); UROBILINOGEN,URINE 0.2 E.U/dL (0.2-1.0)
[2021-10-11 20:02] LABS: UA COLLECTION TYPE NON-SPECIFIED
[2021-10-11 20:17] LABS: BACTERIA,URINE 1+ /HPF (Neg); MUCUS STRANDS FEW /LPF (Neg); RBC,URINE 0-2 /HPF (0-2); SQUAMOUS EPITHELIAL CELL,UR FEW /LPF (FEW); WBC,URINE 0-4 /HPF (0-4)
[2021-10-11] MEDS ORDERED: proCHLORperazine 10 MG/2 ml inj IV ONE (21:05)
[2021-10-11] MEDS ORDERED: normal saline 1000ML IV soln IVB ONE (21:10)
[2021-10-11] MEDS ORDERED: haloperidol lactate 5mg/ml inj IM ONE ×2 (21:10→22:30)
[2021-10-11] MEDS ORDERED: diphenhydrAMINE 50 mg/ml inj IV ONE (21:10)
[2021-10-11] MEDS ORDERED: METO-292 PO (22:27)
[2021-10-11] MEDS ORDERED: DOXY1TAB3 PO (22:46)
[2021-10-11 23:16] VITALS: BP 161/84
== END 2021-10-11 23:18 | disposition home or self-care (01) ==
LOC: ER 17:42
DX: R11.0 Nausea (principal); I10 Essential (primary) hypertension; I05.0 Rheumatic mitral stenosis; Z90.710 Acquired absence of both cervix and uterus; Z98.891 History of uterine scar from previous surgery; Z98.890 Other specified postprocedural states; Z79.82 Long term (current) use of aspirin; Z79.899 Other long term (current) drug therapy; Z88.8 Allergy status to other drugs, medicaments and biological substances
CPT/HCPCS: 36415; 71045; 80053; 81001; 83690; 83880; 84484; 85025; 93005; 96361; 96372; 96374; 96375; 99285; J0780; J1200; J1630; J7030

== ENCOUNTER 2023-03-22 12:03 | Emergency (ER) | payer MEDICARE, OTHER ==
[~2023-03-22] VITALS: Ht 175.3 cm; Wt 70.4 kg
[~2023-03-22 12:03] MED LIST changes: +DOXY1TAB3 PO; +METO-292 PO
[2023-03-22 15:29] VITALS: RESP 16
[2023-03-22 19:09] VITALS: BP 153/87; PULSE 50; TEMP 96.8; O2SAT 100
[2023-03-22] MEDS ORDERED: bacitracin 15gm ointment TP ONE (23:00)
[2023-03-22] MEDS ORDERED: TETanus/Pertussis (Acell)/Diphther VAC/PF (Tdap-Adult) 0.5ml syringe IMVAC ONE (23:00)
== END 2023-03-22 23:15 | disposition home or self-care (01) ==
LOC: ER 12:04
DX: S60.011A Contusion of right thumb without damage to nail, initial encounter (principal); M25.511 Pain in right shoulder; Z79.01 Long term (current) use of anticoagulants; Z79.899 Other long term (current) drug therapy; Z23 Encounter for immunization; V99.XXXA Unspecified transport accident, initial encounter; Y93.89 Activity, other specified; Y92.89 Other specified places as the place of occurrence of the external cause; Y99.8 Other external cause status
CPT/HCPCS: 73030; 73110; 73130; 90471; 90715; 99284